=== PATIENT | female | born 1960 | race American Indian/Alaskan Native ===

== ENCOUNTER 2017-01-03 16:28 | Outpatient (CLI) | payer OTHER ==
--- NOTE | 2017-01-04 09:05 | XRay Report ---
BILATERAL KNEES, 2 VIEWS History: Bilateral knee pain. Findings: There is normal bone mineralization. Mild to moderate osteoarthritic changes are identified bilaterally which are most pronounced in the patellofemoral spaces. The left knee is more affected. No evidence for fracture or bone lesion. Small bilateral joint effusions are identified. Impression: Osteoarthritic changes as described. Small joint effusions. No acute process. If further evaluation is needed, MRI would provide the most information.
== END 2017-01-03 16:29 | disposition home or self-care (01) ==
LOC: XRAY 16:28
PROVIDERS: ATTEND Internal Medicine
DX: M17.0 Bilateral primary osteoarthritis of knee (principal); M25.461 Effusion, right knee; M25.462 Effusion, left knee